=== PATIENT | male | born 1985 | race Hispanic/Latino ===

== ENCOUNTER 2024-06-08 13:44 | Emergency (ER) | payer BC ==
[~2024-06-08] VITALS: Ht 180.3 cm; Wt 167.8 kg
[2024-06-08 14:19] VITALS: PULSE 78; RESP 18; TEMP 97.3; O2SAT 99
[2024-06-08] MEDS ORDERED: SODIUM CHLORIDE FLUSH 10 ML SYR IV PRN (14:45)
[2024-06-08 15:17] LABS: BASOPHILS # (AUTO) 0.1 (0.0-0.1); BASOPHILS % 0.5 % (0.0-1.0); EOSINOPHILS # (AUTO) 0.4 (0.0-0.4); HEMATOCRIT 46.1 % (38.2-49.6); HEMOGLOBIN 15.2 g/dL (14.0-18.0); LYMPHOCYTES # (AUTO) 3.7 (1.0-3.2); LYMPHOCYTES % 27.8 % (18.0-39.1); MEAN CORPUSCULAR HEMOGLOBIN 30.8 pg (28-32); MEAN CORPUSCULAR VOLUME 93.5 fL (81-99); MONOCYTES # (AUTO) 0.9 (0.2-0.8); MONOCYTES % 6.7 % (4.4-11.3); NEUTROPHILS # (AUTO) 8.1 (2.1-6.9); NEUTROPHILS % 61.4 % (38.7-80.0); PLATELET COUNT 264 x10e3/uL (140-360); RED BLOOD COUNT 4.93 x10e6/uL (4.3-5.7); RED CELL DISTRIBUTION WIDTH 13.7 % (11.7-14.4); WHITE BLOOD COUNT 13.19 x10e3/uL (4.8-10.8)
[2024-06-08 15:33] LABS: ALBUMIN 4.2 g/dL (3.5-5.0); ALBUMIN/GLOBULIN RATIO 1.2 (0.8-2.0); ANION GAP 13.7 mmol/L (8-16); BILIRUBIN,TOTAL 1.4 mg/dL (0.2-1.2); CALCIUM 9.5 mg/dL (8.4-10.2); CREATININE, SERUM 0.83 mg/dL (0.72-1.25); POTASSIUM 3.7 mmol/L (3.5-5.1); TOTAL PROTEIN 7.7 g/dL (6.5-8.1)
[2024-06-08 15:34] LABS: INR 1.01; PROTHROMBIN TIME 13.9 seconds (11.9-14.5)
[2024-06-08 15:35] LABS: PARTIAL THROMBOPLASTIN TIME 32.6 seconds (23.8-35.5)
[2024-06-08 15:39] LABS: TROPONIN I 0.006 ng/mL (0-0.300)
[2024-06-08] MEDS ORDERED: IOPAMIDOL 370 MG/ML 100 ML INFUS..BTL INJ ONE (15:47)
[2024-06-08 16:11] LABS: CLARITY,URINE CLEAR (CLEAR); COLOR,URINE YELLOW (YELLOW); LEUKOCYTE ESTERASE ,URINE NEGATIVE (NEGATIVE); NITRITE,URINE NEGATIVE (NEGATIVE); PH,URINE 6 (5 - 7); PROTEIN,URINE DIPSTICK NEGATIVE (NEGATIVE)
[2024-06-08 16:12] LABS: BILIRUBIN,URINE NEGATIVE (NEGATIVE); GLUCOSE, URINE 500 (NEGATIVE); KETONES,URINE NEGATIVE (NEGATIVE); URINE UROBILINOGEN 1 mg/dL (0.2 - 1)
[2024-06-08 16:21] LABS: EPITHELIAL CELLS,URINE MODERATE /LPF; RBC,URINE >50 /HPF (0-5); WBC,URINE (MAN) 0-5 /HPF (0-5)
[2024-06-08 16:22] LABS: BACTERIA,URINE MODERATE /HPF
== END 2024-06-08 17:45 | disposition home or self-care (01) ==
LOC: ER 14:32
DX: R25.2 Cramp and spasm (principal); E11.9 Type 2 diabetes mellitus without complications
CPT/HCPCS: 36415; 70496; 70498; 71045; 80053; 81001; 83880; 84484; 85025; 85610; 85730; 99284; Q9967